=== PATIENT | female | born 1955 | race Caucasian/White ===

== ENCOUNTER → 2017-05-09 | Day surgery (SDC) | payer OTHER ==
[~2017-05-09] MED LIST: ALBUTEROL17 GM INH; AMITRIPTYLINE H50 MG PO; CIPRO PO; DILTIAZEM ER60 MG PO; IBUPROFEN800 MG PO; LISINOPRIL30 MG PO; LOPID600 MG PO; LOVASTATIN20 M2 PO; MOTRIN600 MG PO; OMEPRAZOLE20 M1 PO; VICODIN 5/500 T1 TAB PO; ZESTRIL30 MG PO
--- NOTE | ~2017-05-09 | OR ---
Unit #: [id number] #: [id number] Patient: LILIAN BHAKTA [id number] [address] [address] [id number] O MR#: [id number] NAME: LILIAN BHAKTA ROOM: Date of Procedure: 05/09/2017 Admission Date: 05/09/2017 Surgeon: Bora Gray M.D. : 1955 Attending Physician: Bora Gray M.D. Primary Care Physician: Angie Juan OPERATIVE REPORT PROCEDURE PERFORMED Colonoscopy to cecum. INDICATIONS FOR PROCEDURE Average-risk for colorectal cancer. MEDICATIONS Monitored anesthesia. POSTOPERATIVE FINDINGS Normal exam to cecum. Good prep. PLAN Repeat colonoscopy in 10 years. DESCRIPTION OF PROCEDURE The patient was explained of the procedure, risks, and benefits along with the risks and benefits of anesthesia. She was brought to the endoscopy room. Propofol anesthesia was given. Rectal exam was done, which was normal. Colonoscope was lubricated, passed up the rectum, advanced under direct vision all the way to the cecum. Cecum was identified by ileocecal valve and appendiceal orifice. I then started to pull the scope out carefully looking. No polyps, masses, or colitis were seen. Mucosa was normal and healthy. I retroflexed in the rectum. Small hemorrhoids seen. The scope was gently pulled out. She tolerated it well. Dictated by... Melissa Bridges/[place] TD: 05/10/2017 13:54 JOB #: [id number] Unit #: [id number] #: [id number] Patient: LILIAN BHAKTA OPERATIVE REPORT Page 1 of 1 X Bora Gray MD X PROCEDURE OPERATIVE NOTE
== END | disposition home or self-care (01) ==
LOC: COPS 05:56
DX: Z12.11 Encounter for screening for malignant neoplasm of colon (principal); K64.9 Unspecified hemorrhoids; I10 Essential (primary) hypertension; J44.9 Chronic obstructive pulmonary disease, unspecified; Z87.891 Personal history of nicotine dependence; Z98.51 Tubal ligation status; Z88.0 Allergy status to penicillin; Z98.890 Other specified postprocedural states
CPT/HCPCS: J2250

== ENCOUNTER → 2017-05-28 | Outpatient (CLI) | payer OTHER ==
--- NOTE | ~2017-05-28 | CR63 ---
[facility] A Service of [facility] & [facility] RADIOLOGY TEXT RESULTS PATIENT: LILIAN BHAKTA LOCATION: [facility] : 51 UNIT #: [id number] AGE: [address]: Cordell Frye MD SEX: F ORDER DR: [id number] [facility] [address] [facility]. [place], [place] [address] [id number] O MR#: [id number] Acc #: [id number] NAME: LILIAN BHAKTA : 1955 SEX: F STUDY DATE/TIME: 05/28/2017 11:51 UNIT: [facility] ROOM: STUDY DESCRIPTION: CR Chest 2 View Attending Physician: Belen Frye M.D. Referring Physician: Belen Frye M.D. Ordering Physician: Belen Frye M.D. Primary Care Physician: Angie Coe A.P.R.N. MEDICAL IMAGING REPORT This report is preliminary unless electronic signature is present EXAM Chest, 05/28/2017, [facility]. HISTORY 61-year-old woman; short of air, cough past 6 months. 40-year smoking history with given history of COPD. COMPARISON Chest 02/12/2014 FINDINGS PA and lateral chest views show normal cardiac size and configuration. Minimal calcification noted in the thoracic aorta. Lungs are hyperinflated with flattened diaphragms and increased AP chest diameter. I see no infiltrates and no fluid. IMPRESSION Stable COPD appearance. No acute chest finding. Dictated by... Roger Jurado M.D. THIS IS AN ELECTRONICALLY VERIFIED REPORT Roger Jurado M.D. at 05/29/2017 7:13 AM KARLI/mike TD: 05/28/2017 18:14 JOB #: [id number] MEDICAL IMAGING REPORT Page 1 of 1 COPY
== END | disposition home or self-care (01) ==
LOC: CRAD 11:26
DX: J44.9 Chronic obstructive pulmonary disease, unspecified (principal)
CPT/HCPCS: 71020